=== PATIENT | female | born 1935 | race Caucasian/White ===

== ENCOUNTER 2022-05-08 22:32 | Emergency (ER) | payer MEDICARE ==
[2022-05-08 22:56] VITALS: BP 190/98
[2022-05-08 23:00] VITALS: BP 182/91
[2022-05-08 23:16] VITALS: BP 177/74
[2022-05-08] MEDS ORDERED: LISINOPRIL5 MG PO (23:20)
[2022-05-08] MEDS ORDERED: ASPIRIN81 MG PO (23:21)
[2022-05-08 23:30] VITALS: BP 154/82
[2022-05-08 23:39] VITALS: BP 147/75
[2022-05-08 23:51] LABS: ALBUMIN 4.2 g/dL (3.2-5.0); ALKALINE PHOSPHATASE 114 u/l (38-126); BASO% 0.8 % (0-3); BUN 19 mg/dL (8-23); BUN/CREATININE RATIO 27 (12-20 (CALC)); CHLORIDE 105 mmol/l (95-108); CREATININE 0.7 mg/dL (0.5-1.0); EOS% 1.4 % (0-8); GFR FOR AFR.AMER. > 60 ML/MIN (>=60 (CALC)); GFR OTHER RACES > 60 ML/MIN (>=60 (CALC)); HEMATOCRIT 36.1 % (37.0-47.0); HEMOGLOBIN 11.7 g/dl (12.0-16.0); LYMPH% 24.8 % (15-41); MEAN CELL VOLUME 92.1 fL CALC (80.0-100.0); MEAN CORPUSCULAR HGB 29.8 pG CALC (26.0-32.0); MEAN CORPUSCULAR HGB CONC 32.4 g/dL CAL (32.0-36.0); MONO% 10.2 % (2-13); NEUT# 3.2 thou/uL (2.00-7.15); NEUT% 62.8 % (42-76); POTASSIUM 4.5 mmol/l (3.5-5.1); RED BLOOD COUNT 3.92 mill/uL (4.20-5.60); RED CELL DISTRI WIDTH 12.4 % (11.5-15.5); SGOT/AST 29 u/l (9-36); SODIUM 134 mmol/l (137-146); TOTAL PROTEIN 6.5 g/dL (6.3-8.2)
[2022-05-08 23:57] LABS: URINE BILIRUBIN - DIPSTICK NEGATIVE (NEGATIVE); URINE COLOR YELLOW; URINE GLUCOSE - DIPSTICK NEGATIVE (NEGATIVE); URINE KETONE NEGATIVE (NEGATIVE); URINE PH 5.5 (4.5-8.0); URINE PROTEIN - DIPSTICK NEGATIVE (NEG-TRACE); URINE SPECIFIC GRAVITY 1.015; URINE UROBILINOGEN - DIPSTICK 0.2 E.U./dL (0.2)
[2022-05-09 00:02] LABS: URINE BLOOD DIPSTICK NEGATIVE (NEGATIVE); URINE LEUK ESTERASE MODERATE (NEGATIVE); URINE NITRITE - DIPSTICK NEGATIVE (Negative)
[2022-05-09 00:04] LABS: URINE EPITHELIAL CELLS MODERATE EPI/hpf (0-FEW)
[2022-05-09 00:05] LABS: URINE BACTERIA MODERATE hpf
[2022-05-09 00:10] LABS: ANION GAP 12 (6-22 (CALC)); CARBON DIOXIDE 22 mmol/l (22-30)
[2022-05-09 01:22] VITALS: BP 155/74
[2022-05-09 01:29] VITALS: BP 155/74
== END 2022-05-09 01:43 | disposition home or self-care (01) ==
LOC: ED 22:32
PROVIDERS: Family Medicine
DX: I10 Essential (primary) hypertension (principal)

== ENCOUNTER 2023-11-09 08:28 | Inpatient (IN) | payer MEDICARE ==
[~2023-11-09] VITALS: Ht 152.4 cm; Wt 55.8 kg
[2023-11-09] VITALS (54 sets, daily range): BP systolic 123–187; BP diastolic 51–84
[~2023-11-09 08:28] MED LIST: ASPIRIN81 MG PO; LISINOPRIL5 MG PO
[2023-11-09] MEDS ORDERED: ACETAMINOPHEN 500 MG TAB PO ONE (08:40)
[2023-11-09] MEDS ORDERED: PIPERACILLIN Sodium-Tazobactam 3.375 GM in SODIUM CHLORIDE 0.9% 100 ML IV ONE (08:40)
[2023-11-09] MEDS ORDERED: ONDANSETRON HCl 4 MG/2 ML SDV IV ONE (08:40)
[2023-11-09] MEDS ORDERED: SODIUM CHLORIDE 0.9% 1,000 ML IV ONE (08:40)
[2023-11-09 09:13] LABS: BASO% 0.3 % (0-3); EOS% 0.1 % (0-8); HEMATOCRIT 42.1 % (37.0-47.0); HEMOGLOBIN 14.2 g/dl (12.0-16.0); IMMATURE GRANULOCYTES 0.3 % (0.0-5.0); LYMPH% 5.4 % (15-41); MEAN CELL VOLUME 87.5 fL CALC (80.0-100.0); MEAN CORPUSCULAR HGB 29.5 pG CALC (26.0-32.0); MEAN CORPUSCULAR HGB CONC 33.7 g/dL CAL (32.0-36.0); MONO% 2.8 % (2-13); NEUT# 10.68 thou/uL (2.00-7.15); NEUT% 91.1 % (42-76); RED BLOOD COUNT 4.81 mill/uL (4.20-5.60)
[2023-11-09 09:21] LABS: URINE BILIRUBIN - DIPSTICK Negative (NEGATIVE); URINE BLOOD DIPSTICK Negative (NEGATIVE); URINE GLUCOSE - DIPSTICK Negative (NEGATIVE); URINE KETONE Negative (NEGATIVE); URINE LEUK ESTERASE Negative (NEGATIVE); URINE NITRITE - DIPSTICK Negative (Negative); URINE PH 8.5 (4.5-8.0); URINE PROTEIN - DIPSTICK Negative (NEG-TRACE); URINE UROBILINOGEN - DIPSTICK 0.2 E.U./dL (0.2)
[2023-11-09 09:22] LABS: URINE COLOR Yellow
[2023-11-09 09:29] LABS: ALBUMIN 4.9 g/dL (3.2-5.0); ALKALINE PHOSPHATASE 153 u/l (38-126); ANION GAP 11 (6-22 (CALC)); BILIRUBIN, TOTAL 0.5 mg/dL (0.02-1.3); BUN 11 mg/dL (8-23); BUN/CREATININE RATIO 15 (12-20 (CALC)); CARBON DIOXIDE 23 mmol/l (22-30); CHLORIDE 99 mmol/l (95-108); CREATININE 0.7 mg/dL (0.5-1.0); ESTIMATED GFR 84 ML/MIN (>=90 (CALC)); LIPASE 112 u/l (23-300); POTASSIUM 4.4 mmol/l (3.5-5.1); SGOT/AST 34 u/l (9-36); SODIUM 129 mmol/l (137-146)
[2023-11-09 09:33] LABS: TOTAL PROTEIN 7.8 g/dL (6.3-8.2)
[2023-11-09 09:35] LABS: PROTHROMBIN TIME 9.5 SECONDS (9.0-12.5)
[2023-11-09 10:01] LABS: TSH, 3RD GENERATION 0.82 uIU/mL (0.47 - 4.68)
[2023-11-09] MEDS ORDERED: VANCOMYCIN HCL 1 GM in SODIUM CHLORIDE 0.9% 250 ML IV ONE (12:30)
[2023-11-09] MEDS ORDERED: cefTRIAXone SODIUM 2 GM in SODIUM CHLORIDE 0.9% 100 ML IV ONE (12:30)
[2023-11-09] MEDS ORDERED: AMPICILLIN & SULBACTAM SODIUM 3 GM in SODIUM CHLORIDE 0.9% 100 ML IV ONE (12:30)
[2023-11-09] MEDS ORDERED: HALOPERIDOL LACTATE 5 MG/ML SDV IV ONE (12:40)
[2023-11-09] MEDS ORDERED: LORazepam 2 MG/ML IV ONE (12:40)
[2023-11-09] MEDS ORDERED: ACETAMINOPHEN 325 MG/TAB PO PRN (12:45)
[2023-11-09] MEDS ORDERED: MAGNESIUM HYDROXIDE 30 ML UDC PO PRN (12:45)
[2023-11-09] MEDS ORDERED: DEXAMETHASONE SOD. PHOSPHATE 10 MG/ML VIAL IV SCH (13:30)
[2023-11-09] MEDS ORDERED: ACYCLOVIR SODIUM IV SCH (14:00)
[2023-11-09] MEDS ORDERED: DEXTROSE 5% IV SCH (14:00)
[2023-11-09] MEDS ORDERED: ACYCLOVIR SODIUM 50 MG/ML VIAL IV SCH (14:00)
[2023-11-09] MEDS ORDERED: LORazepam 2 MG/ML IV PRN (14:05)
[2023-11-09] MEDS ORDERED: HALOPERIDOL LACTATE 5 MG/ML SDV IV PRN (14:05)
[2023-11-09] MEDS ORDERED: hydrALAZINE HCL 20 MG/ML VIAL(1 ML) IV PRN (14:10)
[2023-11-09] MEDS ORDERED: SODIUM CHLORIDE 0.9% 1,000 ML IV PRN (14:40)
[2023-11-09] MEDS ORDERED: DOXYCYCLINE HYCLATE 100 MG in SODIUM CHLORIDE 0.9% 100 ML IV SCH (15:30)
[2023-11-09] MEDS ORDERED: AMPICILLIN SODIUM 2 GM in SODIUM CHLORIDE 0.9% 100 ML IV SCH ×3 (18:00)
[2023-11-09] MEDS ORDERED: METOPROLOL TARTRATE 25 MG/TAB PO SCH (21:40)
[2023-11-09] MEDS ORDERED: METOPROLOL TARTRATE 5 MG/5 ML VIAL IV PRN (21:50)
[2023-11-10] VITALS (39 sets, daily range): BP systolic 84–178; BP diastolic 39–113
[2023-11-10] MEDS ORDERED: cefTRIAXone SODIUM 2 GM in SODIUM CHLORIDE 0.9% 100 ML IV SCH ×2 (02:00→03:00)
[2023-11-10] MEDS ORDERED: VANCOMYCIN HCL 1 GM in SODIUM CHLORIDE 0.9% 250 ML IV SCH (04:00)
[2023-11-10] MEDS ORDERED: VANCOMYCIN HCL 750 MG in SODIUM CHLORIDE 0.9% 250 ML IV SCH (04:00)
[2023-11-10 05:49] LABS: BASO% 0.4 % (0-3); IMMATURE GRANULOCYTES 0.4 % (0.0-5.0); LYMPH% 9.5 % (15-41); MEAN CELL VOLUME 87.7 fL CALC (80.0-100.0); MEAN CORPUSCULAR HGB 29.9 pG CALC (26.0-32.0); MEAN CORPUSCULAR HGB CONC 34.1 g/dL CAL (32.0-36.0); MONO% 5.8 % (2-13); NEUT# 6.79 thou/uL (2.00-7.15); NEUT% 83.9 % (42-76); RED BLOOD COUNT 3.65 mill/uL (4.20-5.60); RED CELL DISTRI WIDTH 12.5 % (11.5-15.5)
[2023-11-10 05:51] LABS: HEMOGLOBIN 10.9 g/dl (12.0-16.0)
[2023-11-10 06:08] LABS: BILIRUBIN, TOTAL 0.3 mg/dL (0.02-1.3); CREATININE 0.7 mg/dL (0.5-1.0); MAGNESIUM 1.7 mg/dL (1.6-2.3); POTASSIUM 3.9 mmol/l (3.5-5.1)
[2023-11-10 06:14] LABS: ALBUMIN 3.1 g/dL (3.2-5.0); TOTAL PROTEIN 5.2 g/dL (6.3-8.2)
[2023-11-10] MEDS ORDERED: Polyethylene Glycol 3350 17 GM/PKT PO SCH (09:00)
[2023-11-10] MEDS ORDERED: VANCOMYCIN HCL 750 MG in SODIUM CHLORIDE 0.9% 235 ML IV SCH (14:00)
[2023-11-10] MEDS ORDERED: LISINOPRIL 10 MG/TAB PO SCH (15:00)
[2023-11-10] MEDS ORDERED: ENOXAPARIN SODIUM 40 MG/0.4 ML SYR SC SCH (21:00)
[2023-11-11] VITALS (20 sets, daily range): BP systolic 110–156; BP diastolic 41–75
[2023-11-11 05:41] LABS: ALBUMIN 2.9 g/dL (3.2-5.0); CREATININE 0.6 mg/dL (0.5-1.0); MAGNESIUM 1.8 mg/dL (1.6-2.3); POTASSIUM 4.1 mmol/l (3.5-5.1); TOTAL PROTEIN 4.9 g/dL (6.3-8.2)
[2023-11-11 05:42] LABS: BASO% 0.3 % (0-3); BILIRUBIN, TOTAL 0.1 mg/dL (0.02-1.3); EOS% 0.7 % (0-8); HEMATOCRIT 29.6 % (37.0-47.0); HEMOGLOBIN 10.2 g/dl (12.0-16.0); IMMATURE GRANULOCYTES 0.1 % (0.0-5.0); LYMPH% 13.1 % (15-41); MEAN CELL VOLUME 90.5 fL CALC (80.0-100.0); MEAN CORPUSCULAR HGB 31.2 pG CALC (26.0-32.0); MEAN CORPUSCULAR HGB CONC 34.5 g/dL CAL (32.0-36.0); MONO% 8.1 % (2-13); NEUT% 77.7 % (42-76); RED BLOOD COUNT 3.27 mill/uL (4.20-5.60); RED CELL DISTRI WIDTH 12.9 % (11.5-15.5)
[2023-11-11] MEDS ORDERED: guaiFENesin-CODEINE 200-20 MG/10 ML UDC PO PRN (09:05)
[2023-11-11] MEDS ORDERED: FUROSEMIDE 40 MG/4 ML SDV IV SCH (09:30)
[2023-11-11] MEDS ORDERED: FUROSEMIDE 20 MG/TAB PO SCH (17:00)
[2023-11-11] MEDS ORDERED: MELATONIN 3 MG/TAB PO SCH (21:00)
[2023-11-12 04:36] VITALS: BP 139/52
[2023-11-12 05:19] LABS: BASO% 0.6 % (0-3); EOS% 1.4 % (0-8); HEMATOCRIT 28.7 % (37.0-47.0); HEMOGLOBIN 9.7 g/dl (12.0-16.0); LYMPH% 18.8 % (15-41); MEAN CELL VOLUME 90.3 fL CALC (80.0-100.0); MEAN CORPUSCULAR HGB 30.5 pG CALC (26.0-32.0); MEAN CORPUSCULAR HGB CONC 33.8 g/dL CAL (32.0-36.0); NEUT# 4.43 thou/uL (2.00-7.15); NEUT% 69.2 % (42-76); RED BLOOD COUNT 3.18 mill/uL (4.20-5.60); RED CELL DISTRI WIDTH 12.7 % (11.5-15.5)
[2023-11-12 05:26] LABS: ALBUMIN 2.8 g/dL (3.2-5.0); CREATININE 0.6 mg/dL (0.5-1.0); MAGNESIUM 1.9 mg/dL (1.6-2.3); POTASSIUM 3.7 mmol/l (3.5-5.1); TOTAL PROTEIN 4.9 g/dL (6.3-8.2)
[2023-11-12 05:29] LABS: BILIRUBIN, TOTAL 0.3 mg/dL (0.02-1.3)
[2023-11-12 07:21] VITALS: BP 135/52
[2023-11-12] MEDS ORDERED: FUROSEMIDE 40 MG/4 ML SDV IV SCH (09:00)
[2023-11-12] MEDS ORDERED: FUROSEMIDE 40 MG/TAB PO SCH (09:00)
[2023-11-12] MEDS ORDERED: guaiFENesin-CODEINE 200-20 MG/10 ML UDC PO SCH (10:30)
[2023-11-12] MEDS ORDERED: DOXYCYCLINE HYCLATE 100 MG in SODIUM CHLORIDE 0.9% 100 ML IV SCH (10:30)
[2023-11-12 10:54] VITALS: BP 131/48
[2023-11-12] MEDS ORDERED: cefTRIAXone SODIUM 2 GM in SODIUM CHLORIDE 0.9% 100 ML IV SCH (11:30)
[2023-11-12] MEDS ORDERED: IPRATROPIUM-Albuterol 0.5MG-2.5MG/3 ML NEB SCH (13:00)
[2023-11-12 15:46] VITALS: BP 141/55
[2023-11-12 18:32] VITALS: BP 114/40
[2023-11-13] VITALS (9 sets, daily range): BP systolic 110–153; BP diastolic 43–59
[2023-11-13 04:36] LABS: BASO% 0.8 % (0-3); HEMATOCRIT 28.9 % (37.0-47.0); HEMOGLOBIN 9.7 g/dl (12.0-16.0); IMMATURE GRANULOCYTES 0.2 % (0.0-5.0); LYMPH% 25.7 % (15-41); MEAN CELL VOLUME 90.9 fL CALC (80.0-100.0); MEAN CORPUSCULAR HGB 30.5 pG CALC (26.0-32.0); MEAN CORPUSCULAR HGB CONC 33.6 g/dL CAL (32.0-36.0); MONO% 10.9 % (2-13); NEUT# 3.53 thou/uL (2.00-7.15); NEUT% 59.4 % (42-76); RED BLOOD COUNT 3.18 mill/uL (4.20-5.60); RED CELL DISTRI WIDTH 12.8 % (11.5-15.5)
[2023-11-13 04:42] LABS: ALBUMIN 2.8 g/dL (3.2-5.0); BILIRUBIN, TOTAL 0.2 mg/dL (0.02-1.3); CREATININE 0.7 mg/dL (0.5-1.0); MAGNESIUM 1.9 mg/dL (1.6-2.3); POTASSIUM 3.6 mmol/l (3.5-5.1); TOTAL PROTEIN 4.8 g/dL (6.3-8.2)
[2023-11-13] MEDS ORDERED: FUROSEMIDE 40 MG/4 ML SDV IV SCH (09:00)
[2023-11-14 01:29] VITALS: BP 152/53
[2023-11-14 01:45] VITALS: BP 152/53
[2023-11-14 05:26] LABS: BASO% 0.9 % (0-3); EOS% 2.6 % (0-8); HEMATOCRIT 31.4 % (37.0-47.0); HEMOGLOBIN 10.4 g/dl (12.0-16.0); IMMATURE GRANULOCYTES 0.2 % (0.0-5.0); LYMPH% 23.7 % (15-41); MEAN CELL VOLUME 92.4 fL CALC (80.0-100.0); MEAN CORPUSCULAR HGB 30.6 pG CALC (26.0-32.0); MEAN CORPUSCULAR HGB CONC 33.1 g/dL CAL (32.0-36.0); MONO% 11.2 % (2-13); NEUT# 3.55 thou/uL (2.00-7.15); NEUT% 61.4 % (42-76); RED BLOOD COUNT 3.4 mill/uL (4.20-5.60); RED CELL DISTRI WIDTH 12.5 % (11.5-15.5)
[2023-11-14 05:48] LABS: ALBUMIN 3.2 g/dL (3.2-5.0); BILIRUBIN, TOTAL 0.2 mg/dL (0.02-1.3); CREATININE 0.7 mg/dL (0.5-1.0); MAGNESIUM 2.2 mg/dL (1.6-2.3); TOTAL PROTEIN 5.3 g/dL (6.3-8.2)
[2023-11-14 05:57] VITALS: BP 162/55
[2023-11-14 07:07] VITALS: BP 168/63
[2023-11-14] MEDS ORDERED: DOXYCYCLINE100 MG PO (09:55)
[2023-11-14] MEDS ORDERED: LASIX20 MG PO (09:56)
[2023-11-14 10:30] VITALS: BP 163/52
[2023-11-14] MEDS ORDERED: ENOXAPARIN SODIUM 30 MG/0.3 ML INJ SC SCH (21:00)
== END 2023-11-14 13:50 | DRG 97 ==
LOC: ED 08:28 → ED-I 12:20 → ED 13:13 → ICU 13:14 → MS2 11-10 11:42 → ICU 11-10 11:42 → MS2 11-11 15:28
PROVIDERS: Family Medicine; ADMIT Student in an Organized Health Care Education/Training Program; ATTEND Student in an Organized Health Care Education/Training Program
PROC: 009U3ZX Drainage of Spinal Canal, Percutaneous Approach, Diagnostic (ICD-10-PCS; principal; 2023-11-09)
PROC: B01BZZZ Fluoroscopy of Spinal Cord (ICD-10-PCS; 2023-11-09)
DX: G03.0 Nonpyogenic meningitis (principal); J18.9 Pneumonia, unspecified organism; I11.0 Hypertensive heart disease with heart failure; I50.9 Heart failure, unspecified; R09.02 Hypoxemia; K59.00 Constipation, unspecified; M06.9 Rheumatoid arthritis, unspecified; Z20.828 Contact with and (suspected) exposure to other viral communicable diseases; Z20.822 Contact with and (suspected) exposure to COVID-19
CPT/HCPCS: A9579; J1650; J2060; J3370; Q9967

== ENCOUNTER 2024-01-29 10:47 | Emergency (ER) | payer MEDICARE ==
[2024-01-29] VITALS (18 sets, daily range): BP systolic 139–202; BP diastolic 64–99
[~2024-01-29] VITALS: Ht 152.4 cm; Wt 53.5 kg
[~2024-01-29 10:47] MED LIST changes: +DOXYCYCLINE100 MG PO; +LASIX20 MG PO
[2024-01-29] MEDS ORDERED: SODIUM CHLORIDE 0.9% 1,000 ML IV ONE (11:15)
[2024-01-29 12:02] LABS: BASO% 0.6 % (0-3); EOS% 0.9 % (0-8); IMMATURE GRANULOCYTES 0.2 % (0.0-5.0); LYMPH% 18.6 % (15-41); MEAN CELL VOLUME 93.7 fL CALC (80.0-100.0); MONO% 9.3 % (2-13); NEUT# 4.69 thou/uL (2.00-7.15); NEUT% 70.4 % (42-76); RED BLOOD COUNT 4.74 mill/uL (4.20-5.60); RED CELL DISTRI WIDTH 12.3 % (11.5-15.5)
[2024-01-29 12:08] LABS: HEMATOCRIT 44.4 % (37.0-47.0); HEMOGLOBIN 14.2 g/dl (12.0-16.0)
[2024-01-29 12:19] LABS: ALKALINE PHOSPHATASE 131 u/l (38-126); BUN 13 mg/dL (8-23); BUN/CREATININE RATIO 15 (12-20 (CALC)); CHLORIDE 102 mmol/l (95-108); CREATININE 0.9 mg/dL (0.5-1.0); ESTIMATED GFR 62 ML/MIN (>=90 (CALC)); LIPASE 573 u/l (23-300); POTASSIUM 4.2 mmol/l (3.5-5.1); SODIUM 136 mmol/l (137-146)
[2024-01-29 12:27] LABS: ALBUMIN 4.5 g/dL (3.2-5.0); ANION GAP 14 (6-22 (CALC)); BILIRUBIN, TOTAL 0.4 mg/dL (0.02-1.3); CARBON DIOXIDE 24 mmol/l (22-30); SGOT/AST 34 u/l (9-36); TOTAL PROTEIN 7.2 g/dL (6.3-8.2)
[2024-01-29 12:55] LABS: URINE BILIRUBIN - DIPSTICK Negative (NEGATIVE); URINE BLOOD DIPSTICK Trace-intact (NEGATIVE); URINE GLUCOSE - DIPSTICK Negative (NEGATIVE); URINE KETONE Negative (NEGATIVE); URINE LEUK ESTERASE Trace (NEGATIVE); URINE NITRITE - DIPSTICK Negative (Negative); URINE PH 6.5 (4.5-8.0); URINE PROTEIN - DIPSTICK Negative (NEG-TRACE); URINE UROBILINOGEN - DIPSTICK 0.2 E.U./dL (0.2)
[2024-01-29 12:58] LABS: URINE COLOR Yellow
[2024-01-29] MEDS ORDERED: ISOVUE-300 (Iopamidol) 100 ML SDV IV ONE (13:15)
[2024-01-29] MEDS ORDERED: LISINOPRIL10 MG PO (20:31)
[2024-01-29] MEDS ORDERED: CLONIDINE0.2 MG PO (20:31)
== END 2024-01-29 16:04 | disposition home or self-care (01) ==
LOC: ED 10:47 → ED-I 14:40 → ED 16:04
PROVIDERS: Family Medicine
DX: R53.83 Other fatigue (principal); R53.1 Weakness; I10 Essential (primary) hypertension; Z20.822 Contact with and (suspected) exposure to COVID-19
CPT/HCPCS: Q9967

== ENCOUNTER 2024-01-29 19:35 | Observation (INO) | payer MEDICARE ==
[~2024-01-29] VITALS: Ht 152.4 cm; Wt 54.8 kg
[2024-01-29] VITALS (8 sets, daily range): BP systolic 118–141; BP diastolic 45–56
--- NOTE | 2024-01-29 19:45 | NUR ---
PT IMMEDIATELY TO RM 13 VIA WHEELCHAIR
[2024-01-29] MEDS ORDERED: ASPIRIN 81 MG/TAB PO ONE (20:10)
[2024-01-29 20:29] LABS: BASO% 0.3 % (0-3); HEMATOCRIT 39.3 % (37.0-47.0); HEMOGLOBIN 12.6 g/dl (12.0-16.0); IMMATURE GRANULOCYTES 0.2 % (0.0-5.0); LYMPH% 9.9 % (15-41); MEAN CELL VOLUME 92.5 fL CALC (80.0-100.0); MEAN CORPUSCULAR HGB 29.6 pG CALC (26.0-32.0); MEAN CORPUSCULAR HGB CONC 32.1 g/dL CAL (32.0-36.0); MONO% 4.6 % (2-13); NEUT# 7.49 thou/uL (2.00-7.15); RED BLOOD COUNT 4.25 mill/uL (4.20-5.60); RED CELL DISTRI WIDTH 12.2 % (11.5-15.5)
[2024-01-29] MEDS ORDERED: CLOPIDOGREL BISULFATE 75 MG/TAB TAB PO ONE (20:30)
--- NOTE | 2024-01-29 20:30 | NUR ---
#20 IV STARTED IN LW X 1 ATTEMPT AND LABS DRAWN. PT TOLERATED WELL. PT RESTING IN BED. RESP EVEN AND UNLABORED. NO DISTRESS NOTED. A&O X 4. REPORTS NATA 07/14MD NOTIFIED AND AWARE. INFORMED PT AND FAMILY OF PLAN OF CARE AND CONTINUED WAIT TIME AND THEY VERBALIZED UNDERSTANDING. CALL LIGHT IN REACH
[2024-01-29] MEDS ORDERED: LISINOPRIL10 MG PO (20:31)
[2024-01-29] MEDS ORDERED: CLONIDINE0.2 MG PO (20:31)
[2024-01-29 20:41] LABS: BILIRUBIN, TOTAL 0.4 mg/dL (0.02-1.3); CREATININE 0.7 mg/dL (0.5-1.0); MAGNESIUM 1.7 mg/dL (1.6-2.3); POTASSIUM 4.4 mmol/l (3.5-5.1); TOTAL PROTEIN 6.2 g/dL (6.3-8.2)
--- NOTE | 2024-01-29 20:45 | NUR ---
REPORT CALLED TO EMIR CORONA.
[2024-01-29 20:48] LABS: ACT PARTIAL THROMBO TIME 23.5 SECONDS (20.0-32.5)
[2024-01-29 20:49] LABS: PROTHROMBIN TIME 10.3 SECONDS (9.0-12.5)
[2024-01-29] MEDS ORDERED: MAGNESIUM HYDROXIDE 30 ML UDC PO PRN (20:55)
[2024-01-29] MEDS ORDERED: Zaleplon 5 MG/CAP PO PRN (20:55)
[2024-01-29] MEDS ORDERED: ACETAMINOPHEN 325 MG/TAB PO PRN (20:55)
--- NOTE | 2024-01-29 21:15 | NUR ---
PT TRANSPORTED TO [place] VIA WHEELCHAIR IN STABLE CONDITION. FAMILY BEDSIDE
--- NOTE | 2024-01-29 21:27 | NUR ---
Nurse was notified about patient complaint of a headache on right side.
[2024-01-29] MEDS ORDERED: DEXTROSE 250 ML IV PRN (21:30)
--- NOTE | 2024-01-29 22:15 | NUR ---
PT ADMITTED TO ROOM 271 IN STABLE CONDITION. FAMILY AT BEDSIDE. A/O X3. TELE #[address] ROOM AIR. C/O HEADACHE. MEDICATED WITH TYLENOL 650MG PO PRN. INDEPENDENT WITH ADLS. AMBULATE TO BATHROOM WITHOUT DIFFICULTY. SKIN INTACT. NEURO CHECK AND NIH COMPLETED. S/P FACIAL PARALYSIS. NO RESIDUAL NOTED. PT REFUSED SCD PLACEMENT TONIGHT. SAFETY MEASURES IN PLACE. WILL CONTINUE TO MONITOR.
[2024-01-29] MEDS ORDERED: MELATONIN 3 MG/TAB PO PRN (23:10)
[2024-01-30] VITALS (12 sets, daily range): BP systolic 109–120; BP diastolic 39–49
[2024-01-30 05:42] LABS: BASO% 0.5 % (0-3); EOS% 1.1 % (0-8); HEMATOCRIT 34.9 % (37.0-47.0); HEMOGLOBIN 11.3 g/dl (12.0-16.0); IMMATURE GRANULOCYTES 0.2 % (0.0-5.0); LYMPH% 21.6 % (15-41); MEAN CELL VOLUME 92.1 fL CALC (80.0-100.0); MEAN CORPUSCULAR HGB 29.8 pG CALC (26.0-32.0); MEAN CORPUSCULAR HGB CONC 32.4 g/dL CAL (32.0-36.0); MONO% 11.5 % (2-13); NEUT# 4.33 thou/uL (2.00-7.15); NEUT% 65.1 % (42-76); RED BLOOD COUNT 3.79 mill/uL (4.20-5.60); RED CELL DISTRI WIDTH 12.2 % (11.5-15.5)
[2024-01-30 05:51] LABS: ALBUMIN 3.3 g/dL (3.2-5.0); BILIRUBIN, TOTAL 0.3 mg/dL (0.02-1.3); CREATININE 0.7 mg/dL (0.5-1.0); POTASSIUM 3.8 mmol/l (3.5-5.1); TOTAL PROTEIN 5.3 g/dL (6.3-8.2)
--- NOTE | 2024-01-30 07:15 | NUR ---
SHIFT CHANGE REPORT, PT SLEEPING SOUNDLY IN LEFT SIDE-LYING POSITION, BREATHING EVEN AND NON-LABORED, NO SIGN DISCOMFORT, TELE MONITOR IN PLACE, CALL RODAS IN REACH AND BED LOCKED IN LOWEST POSITION.
[2024-01-30] MEDS ORDERED: CLOPIDOGREL BISULFATE 75 MG/TAB TAB PO SCH (09:00)
[2024-01-30] MEDS ORDERED: ASPIRIN EC 81 MG/TAB PO SCH (09:00)
[2024-01-30] MEDS ORDERED: PANTOPRAZOLE SODIUM Sesquihydr 40 MG/TAB PO SCH (09:00)
[2024-01-30] MEDS ORDERED: LISINOPRIL 10 MG/TAB PO SCH (09:00)
--- NOTE | 2024-01-30 09:15 | NUR ---
AWAKE ALERT AND ORIENTED AT THIS TIME, NO C/O DISCOMFORT.
--- NOTE | 2024-01-30 15:00 | NUR ---
TRANSPORTD OFF UNIT VIA W/C BY VOLUNTEER TO MRI PROCEDURE AND NOR BACK TO ROOM AND SETTLED IN BED.
--- NOTE | 2024-01-30 19:35 | NUR ---
PT RESTING ON BED WITH FAMILY IN THE ROOM. ALERT AND ORIENTE X3. DENIES ANY PAIN AT THIS TIME. TELE ON PLACE RUNNING [employer] AT THIS TIME. 20 G LEFT WRIST NOTED- FLUSHED WITH 5 CC. NO SIGNS OF ANY ABNORMALITIES, LOOKS HEALTHY AND CLEAN. LUNGS SOUNDS WERE CLEAR TO AUSCULTATION AND WEAK PALPABLE PEDAL PULSES. CALL LIGHT IN REACH AND SAFETY PRECAUTIONS IN PLACE.
[2024-01-30] MEDS ORDERED: ATORVASTATIN CALCIUM 40 MG/TAB PO SCH (21:00)
--- NOTE | 2024-01-31 00:05 | NUR ---
PT RESTING IN BED WITH EYES CLOSED. BREATHING EVEN AND UNLABORED. TE MONITOR SHOWING [id number] AT THIS TIME. CALL LIGHT IN PLACE AND SAFETY PRECAUTIONS IN PLACE
[2024-01-31 00:09] VITALS: BP 117/45
[2024-01-31 00:24] VITALS: BP 117/45
--- NOTE | 2024-01-31 03:59 | NUR ---
pt restimg on bed. resp even and unalbored. call light in reach and safety precautions in place.
[2024-01-31 05:19] LABS: BASO% 0.9 % (0-3); EOS% 2.1 % (0-8); HEMATOCRIT 35.5 % (37.0-47.0); HEMOGLOBIN 11.5 g/dl (12.0-16.0); IMMATURE GRANULOCYTES 0.2 % (0.0-5.0); LYMPH% 20.9 % (15-41); MEAN CELL VOLUME 93.7 fL CALC (80.0-100.0); MEAN CORPUSCULAR HGB 30.3 pG CALC (26.0-32.0); MEAN CORPUSCULAR HGB CONC 32.4 g/dL CAL (32.0-36.0); MONO% 9.7 % (2-13); NEUT# 3.88 thou/uL (2.00-7.15); NEUT% 66.2 % (42-76); RED BLOOD COUNT 3.79 mill/uL (4.20-5.60); RED CELL DISTRI WIDTH 12.4 % (11.5-15.5)
[2024-01-31 05:45] LABS: ALBUMIN 3.4 g/dL (3.2-5.0); BILIRUBIN, TOTAL 0.2 mg/dL (0.02-1.3); CREATININE 0.7 mg/dL (0.5-1.0); TOTAL PROTEIN 5.5 g/dL (6.3-8.2)
[2024-01-31 05:51] LABS: POTASSIUM 5.1 mmol/l (3.5-5.1)
[2024-01-31 06:55] VITALS: BP 125/47
--- NOTE | 2024-01-31 07:42 | NUR ---
PT IS AOX4, RESPIRATIONS ARE EVEN AND UNLABORED SITTNG UP IN CHAIR, LUNGS ARE CLEAR, BOWEL SOUNDS ARE ACTIVE, PEDAL PULSES ARE PALPABLE TO TOUCH, PT DENIES PAIN, DENIES DIZZINESS AT THIS TIME.
[2024-01-31 10:34] VITALS: BP 120/41
[2024-01-31] MEDS ORDERED: ZESTRIL10 MG PO (10:51)
--- NOTE | 2024-01-31 11:01 | NUR ---
DR MEJIA AT BEDSIDE DISCUSSING PLAN OF CARE WITH PT AT THIS TIME.
[2024-01-31] MEDS ORDERED: LISINOPRIL20 M1 PO (11:02)
[2024-01-31] MEDS ORDERED: ADLT ASA LOW81 MG PO (11:03)
[2024-01-31] MEDS ORDERED: PLAVIX75 MG PO (11:03)
[2024-01-31] MEDS ORDERED: ATORVASTATIN CA20 MG PO (11:04)
--- NOTE | 2024-01-31 12:19 | NUR ---
REVIEWED DISCHARGE INSTRUCTIONS WITH PT. REMOVED IV, PT AWAITING RIDE. TELE BOX REMOVED AND PLACED IN RETURN BIN AT NURSES STATION.
--- NOTE | 2024-01-31 12:32 | NUR ---
PT LEFT THE UNIT VIA STAFF WHEELCHAIR TRANSPORT WITH BELONGINGS IN HAND.
--- NOTE | 2024-02-01 11:57 | NUR ---
Discharge follow up call completed 02/01/24. Patient states she is doing well and has had no issues since discharge. Patient is taking prescribed medication as directed. She has a follow up appointment with her PCP on 02/07/24. No needs or concerns verbalized at this time. Patient did request her PCP info be added into our system to insure her information was sent to the correct provider in a timely fashion. Request has been referred to Registration Services.
== END 2024-01-31 12:32 | disposition home or self-care (01) ==
LOC: ED 19:35 → ED-I 19:45 → ED 20:14 → MS2 20:15
PROVIDERS: Family Medicine; Nurse Practitioner Family; ADMIT Internal Medicine; ATTEND Internal Medicine
DX: R29.810 Facial weakness (principal); R13.10 Dysphagia, unspecified; G93.40 Encephalopathy, unspecified; I10 Essential (primary) hypertension
CPT/HCPCS: G0378; Q9967